=== PATIENT | male | born 1955 | race Caucasian/White ===

== ENCOUNTER 2021-03-15 13:43 | Observation (INO) | payer OTHER ==
[~2021-03-15] VITALS: Ht 162.6 cm; Wt 132.4 kg
[~2021-03-15 13:43] MED LIST: ANALGESIC325 MG PO; ATENOLOL 100MG100 MG PO; BLOOD PRESSURE MEDS; CRESTOR20 MG PO; HIGH CHOLESTEROL MED; RYTHMOL SR325 MG PO; SENOKOT-S1 TA1 GT
[2021-03-15 13:53] VITALS: BP 148/70
[2021-03-15 14:28] LABS: HEMATOCRIT 35.7 % (42.0-52.0); HEMOGLOBIN 11.8 gm/dL (14.0-18.0); MCHC 33.1 g/dL (28.0-37.0); MCV 84.5 fL (80.0-100.0); MPV 7.4 fl. (7.2-11.1); NUCLEATED RBCS 0 /100WBC; PLATELET COUNT* 301 thou/uL (150-400); RBC 4.22 mil/uL (4.50-6.00); RDW-CV 15.2 % (10.5-14.5); WBC 13.2 thou/uL (4.0-11.0)
[2021-03-15 14:37] LABS: CALCIUM 8.9 mg/dL (8.5-10.1); CREATININE 2.1 mg/dL (0.6-1.3); POTASSIUM 4.4 mmol/L (3.5-5.1)
[2021-03-15 14:42] LABS: ALBUMIN 3.6 g/dL (3.4-5.0); TOTAL BILIRUBIN 0.1 mg/dL (<0.1-1.0); TOTAL PROTEIN 7.4 g/dL (6.4-8.2)
[2021-03-15 14:50] LABS: ABSOLUTE BASOPHILS 0.3 thou/uL (0.0-0.2); ABSOLUTE EOSINOPHILS 0.1 thou/uL (0.0-0.7); ABSOLUTE LYMPHOCYTES 1.7 thou/uL (0.8-5.3); ABSOLUTE MONOCYTES 0.5 thou/uL (0.0-1.2); ABSOLUTE NEUTROPHILS 10.6 thou/uL (1.6-8.1)
[2021-03-15 14:51] LABS: ANISOCYTOSIS Occasional; MICROCYTES Occasional; PLATELET ESTIMATE ADEQUATE
[2021-03-15] MEDS ORDERED: ROSUVASTATIN CAL5 MG PO (15:04)
[2021-03-15] MEDS ORDERED: CARDURA XL8 MG PO (15:04)
[2021-03-15] MEDS ORDERED: RYTHMOL SR225 MG PO (15:04)
[2021-03-15] MEDS ORDERED: FENOFIBRATE160 MG PO (15:04)
[2021-03-15] MEDS ORDERED: LASIX 20 MG TAB20 MG PO (15:05)
[2021-03-15] MEDS ORDERED: BELBUCA150 MCG PO (15:05)
[2021-03-15] MEDS ORDERED: TRAMADOL 50 MG50 MG PO (15:05)
[2021-03-15] MEDS ORDERED: ZANAFLEX4 MG PO (15:05)
[2021-03-15] MEDS ORDERED: KAPSPARGO SPRI200 MG PO (15:05)
[2021-03-15] MEDS ORDERED: IRON160 M1 PO (15:06)
[2021-03-15] MEDS ORDERED: SUPER THERAVIT1 EACH PO (15:06)
[2021-03-15] MEDS ORDERED: CHILDREN'S ASPI81 M1 PO (15:06)
--- NOTE | 2021-03-15 15:43 | EKG ---
[place] [address] ELECTROCARDIOGRAM REPORT Name: MICAH HERNANDEZ Room: [place] [address] ADM IN .R.#: [id number] Admission: 03/15/21 Attend Phys: Rubio Stephens, Discharge: Date of : 51 Date of Service: 03/15/21 1411 Report #: [id number] THIS REPORT FOR: //name// [facility] ED Test Date: 2021-03-15 Test Time: 14:11:30 Pat Name: MICAH HERNANDEZ Department: Room: [facility] Gender: M Nail Cutter: JOSUÉ : 1955 Requested By: Jimbo Miller Order Number: [id number] MD: Alex Raymond Measurements Intervals [place] Rate: 68 P: -57 [place]: 67 QRS: 41 QRSD: 78 T: 40 QT: 387 QTc: 412 Interpretive Statements Sinus or ectopic atrial rhythm First-degree AV block Abnormal R-wave progression, early transition Baseline wander in lead(s) V5 No previous ECG available for comparison Electronically Signed On 03-15-2021 15:43:09 CDT by Alex Raymond [email or web address] <ELECTRONICALLY SIGNED> By: Alex Raymond MD, [facility] 03/15/21 1543 1411 1411 Alex Raymond MD, [facility] /EPI
[2021-03-15 19:11] VITALS: BP 149/80
[2021-03-15 19:17] VITALS: BP 141/70
== END 2021-03-15 19:17 | disposition left against medical advice (07) ==
LOC: M.ERS 13:43 → M.TBA-ER 15:37
PROVIDERS: Emergency Medicine; ADMIT Internal Medicine; ATTEND Internal Medicine
DX: R00.2 Palpitations (principal); Z20.822 Contact with and (suspected) exposure to COVID-19; I48.91 Unspecified atrial fibrillation; I12.9 Hypertensive chronic kidney disease with stage 1 through stage 4 chronic kidney disease, or unspecified chronic kidney disease; N18.9 Chronic kidney disease, unspecified; G47.33 Obstructive sleep apnea (adult) (pediatric); E66.2 Morbid (severe) obesity with alveolar hypoventilation; N17.9 Acute kidney failure, unspecified; E78.00 Pure hypercholesterolemia, unspecified; D72.829 Elevated white blood cell count, unspecified; Z79.899 Other long term (current) drug therapy